=== PATIENT | female | born 1980 | race Caucasian/White ===

== ENCOUNTER 2017-03-11 11:33 | Emergency (ER) | payer MEDICAID ==
--- NOTE | 2017-03-11 11:46 | EDM.PDOC ---
ED HPI GENERAL MEDICAL PROBLEM - General Chief Complaint: Lower Extremity Injury/Pain Stated Complaint: RT KNEE HURTS Time Seen by Provider: 03/11/17 11:40 Source of Information: Reports: Patient History Limitations: Reports: No Limitations - History of Present Illness INITIAL COMMENTS - FREE TEXT/NARRATIVE: HISTORY AND PHYSICAL: History of present illness: Patient is a 36-year-old female who presents to the emergency room today with complaints of left knee pain. She states that over the past 2-3 days that she has noticed a "popping sensation" in her left knee when she bears weight on it. She states approximately 6 years ago she did have a gastric bypass surgery due to the "wait on my joints" which she states has improved since that time. Over the past 3 days she has noticed increased pain to the left knee which is worse upon wakening. She has 3 children at home which she is taking care of and states it's "difficult to get around". Denies any recent injury, trauma or falls. Denies any numbness or tingling to the affected extremity. Review of systems: As per history of present illness and below otherwise all systems reviewed and negative. Past medical history: As per history of present illness and as reviewed below otherwise noncontributory. Surgical history: As per history of present illness and as reviewed below otherwise noncontributory. Social history: No reported history of drug or alcohol abuse. Family history: As per history of present illness and as reviewed below otherwise noncontributory. Physical exam: Gen.: Well-developed and well-nourished 36-year-old female. Alert and oriented. Nontoxic appearing and in no acute distress. HEENT: Atraumatic, normocephalic, pupils reactive, negative for conjunctival pallor or scleral icterus, mucous membranes moist, throat clear, neck supple, nontender, trachea midline. Lungs: Clear to auscultation, breath sounds equal bilaterally, chest nontender. Heart: S1S2, regular rate and rhythm Abdomen: Soft, obese, nondistended, nontender. Negative for masses or hepatosplenomegaly. Negative for costovertebral tenderness. Pelvis: Stable nontender. Genitourinary: Deferred. Rectal: Deferred. Extremities: Atraumatic, moves all extremities per self without difficulty or deficits, no knee joint instability noted, no knee tenderness with palpation. She is negative for cords or calf pain. Neurovascular unremarkable. Neuro: Awake, alert, oriented. Cranial nerves II through XII unremarkable. Cerebellum unremarkable. Motor and sensory unremarkable throughout. Exam nonfocal. Skin: Intact, warm, dry. Soft tissue swelling. No erythema or localized area of warmth. I explained to the patient that her symptoms are likely due to her weight and may involve tendon/ligament which she would need further evaluation for. She is agreeable to receiving an x-ray today to make sure that there is no fracture or emergent needs at this time. We discussed close follow-up with an orthopedic provider as she may need further imaging and pain management. Patient reports that she does live close to [place] and had been in [place] for a separate appointment. She is allergic to NSAIDs and is driving, we'll give patient ice pack and elevate while here. X-ray shows no acute findings. We discussed using an Suman wrap for comfort. She declines any use of crutches at this time. We did discuss continuing her weight loss which may alleviate some of her joint discomfort. She'll follow-up with an orthopedic provider in [place], as she is able to get an appointment. Patient voices understanding and is agreeable to plan of care. She denies any further questions at this time. Diagnostics: X-ray left knee Therapeutics: Suman wrap, crutches Impression: Knee pain, left Plan: 1. Please use the Suman wrap for comfort. Crutches have been provided/offered to you. Rest, ice, elevate the extremity. 2. As we discussed please follow-up with your primary care provider or an orthopedic doctor for further evaluation of your knee pain. Sanderson has been prescribed. This is a narcotic, do not take while driving or needing to functioning at work/home. 3. Return to the ED as needed and as discussed. Definitive disposition and diagnosis as appropriate pending reevaluation and review of above. Duration: Day(s): Location: Reports: Lower Extremity, Left Left Knee Pain Score (Numeric/FACES): 7 - Related Data Allergies Allergy/AdvReac Type Severity Reaction Status Date / Time codeine AdvReac Chest Pain Verified 03/11/17 11:39 [From Tylenol-Codeine] ibuprofen AdvReac Chest Pain Verified 03/11/17 11:39 tramadol AdvReac Chest Pain Verified 03/11/17 11:39 Home Meds: Home Meds Albuterol [Ventolin HFA] 1 - 2 puff INH Q4H PRN 03/13/16 [History] Cholecalciferol (Vitamin D3) [Vitamin D] 5,000 unit PO DAILY 03/13/16 [History] Cyanocobalamin/FA/Pyridoxine [Folic Acid-Vit B6-Vit B12] 1 each PO DAILY [History] Famotidine 20 mg PO BEDTIME 03/13/16 [History] Ferrous Sulfate [Iron] 325 mg PO DAILY 03/13/16 [History] PNV95/Ferrous Fumarate/FA [ Tablet] 1 each PO DAILY 03/13/16 [History] Pantoprazole Sodium [Protonix] 20 mg PO DAILY 03/13/16 [History] traZODone 100 mg PO BEDTIME 03/13/16 [History] Past Medical History HEENT History: Reports: None Cardiovascular History: Reports: Hypertension Respiratory History: Reports: Sleep Apnea Gastrointestinal History: Reports: Other (See Below) Other Gastrointestinal History: present Umbilical hernia. patient had a wound vac placed after gastric bypass in 2007. Other Genitourinary History: Dysuria, urinary frequency, incontinence [employer] W[employer] History: Reports: Endometriosis, , Other (See Below) Other OB/BYN History: Yeast vaginitis, PROM, Musculoskeletal History: Reports: Back Pain, Chronic, Neck Pain, Chronic Neurological History: Reports: Headaches, Chronic Psychiatric History: Reports: Anxiety, Depression Endocrine/Metabolic History: Reports: Obesity/BMI 30+, Other (See Below) Other Endocrine/Metabolic History: Vitamin B12 deficiency Hematologic History: Reports: Anemia, Blood Transfusion(s), Iron Deficiency Immunologic History: Reports: None Oncologic (Cancer) History: Reports: None - Past Surgical History HEENT Surgical History: Reports: Other (See Below) GI Surgical History: Reports: Bariatric Procedure, Cholecystectomy, Hernia Repair/Other Female Surgical History: Reports: Section Social & Family History - Family History Family Medical History: Noncontributory - Tobacco Use Smoking Status *Q: Light Tobacco Smoker Years of Tobacco use: 22 Packs/Tins Daily: 0 Used Tobacco, but Quit: No Month Tobacco Last Used: 04/2015 Second Hand Smoke Exposure: No - Caffeine Use Caffeine Use: Reports: Coffee, Soda Caffeine Use Comment: 1 coffee per day along with a couple "pops" a day - Alcohol Use Days Per Week of Alcohol Use: 0 Number of Drinks Per Day: 1 Total Drinks Per Week: 0 - Recreational Drug Use Recreational Drug Use: No Drug Use in Last 12 Months: No - Living Situation & Occupation Living situation: Reports: Single Occupation: Unemployed Review of Systems - Review of Systems Review Of Systems: ROS reveals no pertinent complaints other than HPI. ED EXAM, GENERAL - Physical Exam Exam: See Below (See dictation) Course - Vital Signs Last Recorded V/S: Last Vital Signs Temp 97.2 F 03/11/17 11:47 Pulse 99 03/11/17 11:47 Resp 18 03/11/17 11:47 BP 168/86 H 03/11/17 11:47 Pulse Ox 99 03/11/17 11:47 - Orders/Labs/Meds Orders: Active Orders 24 hr Category Date Time Status Knee 3V Lt [CR] Stat Exams 03/11/17 11:51 Taken DME for Discharge [COMM] Stat Oth 03/11/17 12:51 Ordered Departure - Departure Time of Disposition: 12:56 Disposition: Home, Self-Care 01 Clinical Impression: Knee pain, left Qualifiers: Chronicity: acute Qualified Code(s): M25.562 - Pain in left knee - Discharge Information Referrals: PCP,None [Primary Care Provider] - Forms: ED Department Discharge Additional Instructions: My general discharge The following information is given to patients seen in the emergency department who are being discharged to home. This information is to outline your options for follow-up care. We provide all patients seen in our emergency department with a follow-up referral. The need for follow-up, as well as the timing and circumstances, are variable depending upon the specifics of your emergency department visit. If you don't have a primary care physician on staff, we will provide you with a referral. We always advise you to contact your personal physician following an emergency department visit to inform them of the circumstance of the visit and for follow-up with them and/or the need for any referrals to a consulting specialist. The emergency department will also refer you to a specialist when appropriate. This referral assures that you have the opportunity for follow-up care with a specialist. All of these measure are taken in an effort to provide you with optimal care, which includes your follow-up. Under all circumstances we always encourage you to contact your private physician who remains a resource for coordinating your care. When calling for follow-up care, please make the office aware that this follow-up is from your recent emergency room visit. If for any reason you are refused follow-up, please contact the [facility] Emergency Department at and asked to speak to the emergency department charge nurse. [facility] - [facility] Professional [address], [address] [place] [address] 1. Please use the Suman wrap for comfort. Crutches have been provided/offered to you. Rest, ice, elevate the extremity. 2. As we discussed please follow-up with your primary care provider or an orthopedic doctor for further evaluation of your knee pain. Sanderson has been prescribed. This is a narcotic, do not take while driving or needing to functioning at work/home. 3. Return to the ED as needed and as discussed. - My Orders Last 24 Hours: My Active Orders 03/11/17 11:51 Knee 3V Lt [CR] Stat 03/11/17 12:51 DME for Discharge [COMM] Stat - Assessment/Plan Last 24 Hours: My Active Orders 03/11/17 11:51 Knee 3V Lt [CR] Stat 03/11/17 12:51 DME for Discharge [COMM] Stat
[2017-03-11 13:07] VITALS: BP 143/93
--- NOTE | 2017-03-11 13:16 | CR ---
EXAMINATION: Left knee HISTORY: Pain COMPARISON: None TECHNIQUE: 3 views FINDINGS/IMPRESSION: There is no acute osseous abnormality, dislocation, or fracture. Joint spaces an d bone mineralization appear normal. No joint effusion or soft tissue swelling.
== END 2017-03-11 13:07 | disposition home or self-care (01) ==
LOC: MW.ED 11:33
DX: M25.562 Pain in left knee (principal); I10 Essential (primary) hypertension; F17.210 Nicotine dependence, cigarettes, uncomplicated; Z88.5 Allergy status to narcotic agent; Z88.8 Allergy status to other drugs, medicaments and biological substances; Z79.899 Other long term (current) drug therapy
CPT/HCPCS: 73562-26-LT; 73562-LT; 99283; 99284